=== PATIENT | male | born 1990 | race Caucasian/White ===

== ENCOUNTER 2017-11-06 18:19 | Emergency (ER) | payer SELFPAY ==
--- NOTE | 2017-11-06 19:17 | RAD ---
RADIOGRAPH RIGHT KNEE FOUR VIEWS: 11/06/17 HISTORY: 27-year-old male with chronic right knee pain. FINDINGS: Joint spaces are maintained without erosions or large osteophytes. No moderate sized or large joint e ffusion. No edema in Hoffa's fat pad. No osteolytic, osteoblastic or permeative lesion. IMPRESSION: Negative. POS: [facility]
== END 2017-11-06 19:16 | disposition home or self-care (01) ==
LOC: ERS 18:19
DX: M25.561 Pain in right knee (principal)

== ENCOUNTER 2020-08-04 12:19 | Emergency (ER) | payer SELFPAY | END 2020-08-04 13:00 | disposition home or self-care (01) | LOC: ERS 12:19 | DX: K04.7 Periapical abscess without sinus (principal); F17.210 Nicotine dependence, cigarettes, uncomplicated | CPT/HCPCS: 99282 ==

== ENCOUNTER 2022-09-09 17:17 | Emergency (ER) | payer SELFPAY ==
[~2022-09-09 17:17] MED LIST: Iopamidol-370 76% 500 ML MDV (1 ML CHARGE) ONE
[2022-09-09 18:11] LABS: #Basophils 0.1 thou/uL (0.0-0.2); #Eosinphils 0.3 thou/uL (0.0-0.7); #Monocytes 0.8 thou/uL (0.11-0.59); %Basophils 0.5 % (0.0-1.0); %Eosinophils 2.8 % (0.0-10.0); %Lymphocytes 26.5 % (21.0-51.0); %Monocytes 8.2 % (0.0-10.0); %Neutrophils 61.9 % (42.0-75.0); Hemoglobin 15.3 g/dL (14.0-18.0); Mean Corpuscular HGB CONC 33.4 g/dL (32.0-36.0); Mean Corpuscular Hemoglobin 30.7 pg (27.0-31.0); Mean Platelet Volume 9.3 fL (7.4-10.4); Platelet Count 282 10x3/uL (130-400); Red Blood Cell (RBC) Count 4.98 mill/uL (4.70-6.10); White Blood Cell (WBC) Count 9.8 10x3/uL (4.8-10.8)
[2022-09-09 18:24] LABS: Bilirubin Negative (Negative); Blood, Urine 3+ (Negative); CAUTI Indications for Culture Pelvic or flank pain; Clarity Turbid (Clear); Glucose, Urine (Dipstick) Normal (Negative); Ketone, Urine Negative (Negative); Leukocyte 500 Leu/uL (Negative); Nitrite Negative (Negative); Protein, Urine (Dipstick) 50 mg/dL (Neg-Trace); RBC/HPF 21-50 HPF (0-3); Specific Gravity, Urine 1.007 (1.002-1.036); Squamous Epithelial 0-3 HPF (0-3); Urobilinogen Normal mg/dL (Less than 2); WBC/HPF Greater than 50 HPF (0-3); pH, Urine 7.5 (5.0-9.0)
[2022-09-09 18:26] LABS: Bacteria/HPF 1+ HPF (None Seen)
[2022-09-09 18:27] LABS: Urine Culture Reflex Yes Yes
[2022-09-09 18:34] LABS: ALT (SGPT) 32 U/L (8-55); AST (SGOT) 19 U/L (5-34); Albumin 4.4 g/dL (3.5-5.0); Alkaline Phosphatase 50 U/L (40-110); Anion Gap 9 mmol/L (10-20); BUN (Urea Nitrogen) 8 mg/dL (8.9-20.6); Bilirubin, Total 0.3 mg/dL (0.2-1.2); CK (CPK) 41 U/L (30-200); Calc. Creatinine Clearance 0 mL/min (70-130); Calcium 9.3 mg/dL (7.8-10.44); Carbon Dioxide 27 mmol/L (22-29); Chloride 105 mmol/L (98-107); Estimated GFR 117; Globulin 3.5 g/dL (2.4-3.5); Glucose 85 mg/dL (70-105); Potassium 3.9 mmol/L (3.5-5.1); Protein, Total 7.9 g/dL (6.0-8.3); Sodium 137 mmol/L (136-145)
[2022-09-09] MEDS ORDERED: cefTRIAXone (ROCEPHIN) 1 GM VIAL ONE (19:19)
== END 2022-09-09 20:01 | disposition home or self-care (01) ==
LOC: ERS 17:17
DX: N30.91 Cystitis, unspecified with hematuria (principal); F17.210 Nicotine dependence, cigarettes, uncomplicated
CPT/HCPCS: 74177; 80053; 81001; 82550; 85025; 87086; 96374; J0696; Q9967